=== PATIENT | male | born 1965 | race Caucasian/White ===

== ENCOUNTER 2022-09-01 10:14 | Inpatient (IN) | payer MEDICAID ==
[2022-09-01] MEDS ORDERED: SODIUM CHLORIDE 0.9% 1,000 ML IV STA ×2 (11:02→14:34)
[2022-09-01] MEDS ORDERED: ONDANSETRON 4 MG/2 ML VIAL IVP STA (11:02)
[2022-09-01] MEDS ORDERED: MORPHINE 2 MG/ML CARPUJECT IVP STA (11:02)
[2022-09-01 11:10] LABS: BASOPHILS % (AUTO) 0.2 %; EOSINOPHILS % (AUTO) 0.1 %; HCT - HEMATOCRIT 51.6 % (42.0-52.0); MEAN CORPUSCULAR HEMOGLOBIN 29.8 pg (27.0-31.0); MEAN CORPUSCULAR HGB CONC 32.9 g/dL (32.0-36.0); MEAN CORPUSCULAR VOLUME 90.5 fL (80.0-94.0); MEAN PLATELET VOLUME 8.8 fL (7.4-11.4); MONOCYTES # (AUTO) 0.8 10^3/uL (0.0-1.0); MONOCYTES % (AUTO) 3.9 %; NEUTROPHILS # (AUTO) 17.5 10^3/uL (1.5-6.6); NEUTROPHILS % (AUTO) 90.5 %; PLT - PLATELET COUNT 292 10^3/uL (130-450); RED CELL DISTRIBUTION WIDTH 13.2 % (12.0-15.0); WHITE BLOOD COUNT 19.3 x10^3/uL (4.8-10.8)
--- NOTE | 2022-09-01 11:17 | ED Physician Documentation ---
PD HPI ABD PAIN - Stated complaint Stated Complaint: ABD PX/TIGHTNESS - Chief complaint Chief Complaint: Abd Pain - History obtained from History obtained from: Patient - Additional information Additional information: Patient is a 56-year-old with no significant past medical history presenting for evaluation of left lower quadrant pain has been present since yesterday. He reports the pain is sharp. Nothing makes it better or worse. He has associated nausea. He had a normal bowel movement yesterday. He denies a history of prior abdominal surgeries. He does not take a blood thinner. He denies a history of similar pains in the past. He presented to the walk-in clinic who directed him to the emergency department. Review of Systems Constitutional: denies: Fever Cardiac: denies: Chest pain / pressure Respiratory: denies: Dyspnea GI: reports: Abdominal Pain, Nausea. denies: Diarrhea : denies: Dysuria Musculoskeletal: denies: Back pain Neurologic: denies: Headache PD PAST MEDICAL HISTORY - Past Surgical History Past Surgical History: No - Present Medications Home Medications: Ambulatory Orders Medication Instructions Recorded Confirmed No Known Home Medications 09/01/22 09/01/22 - Allergies Allergies/Adverse Reactions: Allergies Allergy/AdvReac Type Severity Reaction Status Date / Time No Known Drug Allergies Allergy Verified 09/01/22 10:34 - Social History Does the pt smoke?: No Smoking Status: Never smoker Does the pt drink ETOH?: No Does the pt have substance abuse?: No - Immunizations Immunizations are current?: Yes PD ED PE NORMAL - General General: Alert and oriented X 3, No acute distress, Well developed/nourished - HEENT HEENT: Atraumatic - Neck Neck: Supple, no meningeal sign - Cardiac Cardiac: RRR, No murmur, Strong equal pulses - Respiratory Respiratory: No respiratory distress, Clear bilaterally - Abdomen Abdomen: Normal bowel sounds, Soft, Non distended, Other (Left lower quadrant tenderness to palpation, no rebound, no guarding) - Derm Derm: Warm and dry - Extremities Extremities: No edema - Neuro Neuro: Normal speech Results - Vitals Vitals: Vital Signs - 24 hr 09/01/22 09/01/22 09/01/22 10:29 14:11 16:27 Temperature 36.7 C 37.0 C Heart Rate 103 H 114 H 104 H Respiratory 18 24 16 Rate Blood Pressure 115/74 129/89 H 118/85 H O2 Saturation 96 96 97 Oxygen O2 Source Room air - Labs Labs: Laboratory Tests 09/01/22 09/01/22 11:05 11:05 WBC 19.3 H RBC 5.70 Hgb 17.0 Hct 51.6 MCV 90.5 MCH 29.8 MCHC 32.9 RDW 13.2 Plt Count 292 MPV 8.8 Neut # (Auto) 17.5 H Lymph # (Auto) 1.0 L [place] # (Auto) 0.8 Eos # (Auto) 0.0 Baso # (Auto) 0.0 Absolute Nucleated RBC 0.00 Nucleated RBC % 0.0 Sodium 134 L Potassium 4.1 Chloride 93 L Carbon Dioxide 30 Anion Gap 11.0 BUN 17 Creatinine 1.3 H Estimated GFR (MDRD) 57 L Glucose 121 H Calcium 10.1 Total Bilirubin 1.3 H AST 22 ALT 26 Alkaline Phosphatase 79 Total Protein 8.9 H Albumin 4.5 Globulin 4.4 H Albumin/Globulin Ratio 1.0 Lipase 33 PD Medical Decision Making - ED course ED course: Patient presenting for evaluation of left lower quadrant pain. His labs are si gnificant for leukocytosis. He is slightly tachycardic. His CT demonstrates diverticulitis with a reactive ileus versus earlyShow small bowel obstruction.He continues to have nausea. I do not feel that he is appropriate for outpatient management and consulted with Dr. Gonsales. She agrees that patient should be kept n.p.o., had IV fluids and antibiotics and agrees with the choices of Cipro and Flagyl.She agrees with the plan for an NG tube if patient continues to have significant nausea. She will consult on the patient. As there are no beds available in the hospital patient will remain boarding in the emergency department. General surgery will continue to follow along with the patient.The hope is that his partial small bowel obstruction will resolve quickly with antibiotics and fluids and bowel rest and that he will start to have some improvement tomorrow. Once he is tolerating a liquid diet he will be able to be discharged home. Departure - Departure Disposition: ED Place in Observation Clinical Impression: Diverticulitis, Partial small bowel obstruction Condition: Stable
[2022-09-01] MEDS ORDERED: iohexoL-300 100 ML VIAL ONE (11:23)
[2022-09-01 11:26] LABS: ALBUMIN 4.5 g/dL (3.2-5.5); BILIRUBIN,TOTAL 1.3 mg/dL (0.2-1.0); CALCIUM 10.1 mg/dL (8.5-10.3); CREATININE 1.3 mg/dL (0.6-1.2); POTASSIUM 4.1 mmol/L (3.5-5.0); TOTAL PROTEIN 8.9 g/dL (6.7-8.2)
[2022-09-01] MEDS ORDERED: iohexoL-300 100 ML VIAL IVP ONE (13:27)
--- NOTE | 2022-09-01 13:31 | CT Report ---
PROCEDURE: ABDOMEN/PELVIS W INDICATIONS: LLQ pain CONTRAST: 100ml Omnipaque 300 TECHNIQUE: After the administration of IV contrast, 5 mm thick sections acquired from the diaphragms to the symp hysis. 5 mm thick coronal and sagittal reformats were acquired. For radiation dose reduction, the f ollowing was used: automated exposure control, adjustment of mA and/or kV according to patient size. COMPARISON: None. FINDINGS: Image quality: Excellent. ABDOMEN: Lung bases: Gravitational changes present at both lung bases. Mildly enlarged heart. Small hiatal her lamar.. Solid organs: Subcentimeter liver hypodensity near the dome in segment 8, too small to characterize. Liver appears otherwise normal. Normal gallbladder. No biliary dilatation. Normal pancreas, spleen, a drenal glands, and kidneys. No nephrolithiasis or hydronephrosis. Peritoneum and bowel: The stomach is distended with liquid and contains an air-fluid level. Duodenum and proximal jejunum are decompressed. There are several distended, fluid-filled mid small bowel loo ps, some in the left abdomen with mild wall thickening. Distal ileum is decompressed. There is liquid stool in the proximal colon. There are mild inflammatory changes in the left lower quadrant along wi th mild antral coronal fascial thickening. No extraluminal gas or free fluid. Several diverticula are present in this area. Nodes and vessels: No retroperitoneal or mesenteric adenopathy by size criteria. Aorta and inferior vena cava are normal in size. Miscellaneous: No ventral hernias. PELVIS: Genitourinary: Bladder wall thickness is normal. Normal size prostate gland. Miscellaneous: No inguinal hernias or adenopathy. Bones: No suspicious bony lesions. There are severe asymmetric degenerative changes in the right fem oral acetabular joint and minor degeneration of the left. No vertebral body compression fractures. IMPRESSION: 1. There is mild pericolonic inflammation in the left lower quadrant indicative of diverticulitis. 2. Several distended loops of small bowel and a distended, fluid-filled stomach suggesting severe jhonathan ctive ileus or early/partial small bowel obstruction. NG tube may be beneficial. 3. No visible free air. Reviewed by: Jessie Lane MD on 09/01/2022 1:30 PM PST Approved by: Jessie Lane MD on 09/01/2022 1:30 PM PST Station ID: [id number]
[2022-09-01] MEDS ORDERED: ONDANSETRON 4 MG/2 ML VIAL IVP PRN (14:54)
[2022-09-01] MEDS: MORPHINE 2 MG/ML CARPUJECT IVP PRN ×2 (15:30→21:25)
[2022-09-01] MEDS: CIPROFLOXACIN 400 MG/200 ML 400 MG/200 ML BAG IV SCH (15:30)
[2022-09-01] MEDS ORDERED: PHENOL THROAT SPRAY 177 ML MM STA (15:47)
--- NOTE | 2022-09-01 15:57 | CONSULTATION NOTE ---
Referring Provider Name of Referring Provider:: ED (Rocco King) Consult Date: 09/01/22 Chief Complaint - Chief Complaint Chief Complaint: abdominal pain, n/v History of Present Illness - Admitted From Admitted From:: ED - History Obtained From Records Reviewed: yes History obtained from: patient, ED provider, chart - History of Present Illness HPI Comment/Other: Patient states he had onset of abdominal pain Monday evening which has progressively worsened and is most notable in the left lower quadrant. The pain is sharp and non radiating in nature. The patient states he began having nausea and vomiting last night and it's worsened throughout the day today and he's not keeping anything down, prompting him to come into the ED. He had a normal BM yesterday and has not had anything to eat since yesterday. He denies any chronic medical problems, medications, or prior surgeries. He has never had a colonoscopy. His labs and imaging are consistent with acute diverticulitis with an ileus, which explains his symptoms, for this, general surgery is being consulted. History - Past Medical History Cardiovascular: reports: None Respiratory: reports: None Neuro: reports: None Endocrine/Autoimmune: reports: None GI: reports: None BATCHMAKER: reports: None : reports: None HEENT: reports: None Psych: reports: None Musculoskeletal: reports: None Derm: reports: None MRSA Hx?: Yes - Past Surgical History Other past surgical history: No previous surgery Meds/Allgy - Home Medications Home Medications: Ambulatory Orders Medication Instructions Recorded Confirmed No Known Home Medications 09/01/22 09/01/22 - Allergies Allergies/Adverse Reactions: Allergies Allergy/AdvReac Type Severity Reaction Status Date / Time No Known Drug Allergies Allergy Verified 09/01/22 10:34 Review of Systems - Constitutional Constitutional: reports: Other (Complete 10 point ROS is negative except for HPI and PMH.) Exam - Vital Signs Reviewed Vital Signs: Yes Vital Signs: Vital Signs x48h Temp Pulse Resp BP Pulse Ox 09/01/22 14:11 37.0 C 114 H 24 129/89 H 96 09/01/22 10:29 36.7 C 103 H 18 115/74 96 - Physical Exam General Appearance: positive: No acute distress, Alert Eyes Bilateral: positive: Normal inspection, PERRL, EOMI ENT: positive: ENT inspection nml, Dry mucous membranes Neck: positive: Nml inspection, Trachea midline Respiratory: positive: Chest non-tender, No respiratory distress Cardiovascular: positive: Tachycardia (mild, improving). negative: Systolic murmur Peripheral Pulses: positive: 2+ Abdomen: positive: Tenderness (LLQ). negative: No distention (moderate distension), Guarding, Rebound Back: positive: Nml inspection Skin: positive: Color nml, No rash Extremities: positive: Non-tender, Full ROM Neurologic/Psychiatric: positive: Oriented x3 Conclusion and Plan - Lab Results Laboratory Results 09/01/22 11:05: Sodium 134 L, Potassium 4.1, Chloride 93 L, Carbon Dioxide 30, Anion Gap 11.0, BUN 17, Creatinine 1.3 H, Estimated GFR (MDRD) 57 L, Glucose 121 H, Calcium 10.1, Total Bilirubin 1.3 H, AST 22, ALT 26, Alkaline Phosphatase 79, Total Protein 8.9 H, Albumin 4.5, Globulin 4.4 H, Albumin/Globulin Ratio 1.0, Lipase 33 09/01/22 11:05: WBC 19.3 H, RBC 5.70, Hgb 17.0, Hct 51.6, MCV 90.5, MCH 29.8, MCHC 32.9, RDW 13.2, Plt Count 292, MPV 8.8, Neut # (Auto) 17.5 H, Lymph # (Auto) 1.0 L, [place] # (Auto) 0.8, Eos # (Auto) 0.0, Baso # (Auto) 0.0, Absolute Nucleated RBC 0.00, Nucleated RBC % 0.0 - Diagnostic Imaging Results Diagnostic Imaging Results: positive: Final report reviewed Diagnostic Imaging Results Comments: I personally reviewed the CT images and report from the patient's study today. He has sigmoid diverticulitis without signs of perforation and with an associated ileus. No free air. No free fluid. - Diagnosis Diagnosis: Acute diverticulitis with ileus - Plan Plan: 56 y/o M with Acute diverticulitis with ileus - NPO - recommend NG if patient has persistent n/v despite being NPO. - IV antibiotics until ileus resolves and patient can tolerate PO diet and meds - prn pain, nausea medication, IVF resuscitation - Patient is due for colonoscopy by age alone, recommend patient follow up with surgery to schedule this procedure (date of procedure will need to be at least 6 weeks after symptom resolution). Thank you for consulting general surgery in the care of this patient. He will be boarding in the ED as no beds are available in the hospital at this time. I will have my partner, Dr. 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 Allison Gonsales MD
[2022-09-01] MEDS: metroNIDAZOLE 500 MG/100 ML 500 MG/100 ML BAG IV SCH ×2 (16:24→22:32)
--- NOTE | 2022-09-01 18:57 | XRAY Report ---
PROCEDURE: Chest for Line Placement INDICATIONS: NG placement TECHNIQUE: One view of the chest was acquired. COMPARISON: None. FINDINGS: Surgical changes and devices: NG tube tip is below the left hemidiaphragm and is in the expected loc ation of stomach lumen. Lungs and pleura: No pleural effusions or pneumothorax. Lungs are clear. Mediastinum: Mediastinal contours appear normal. Heart size is normal. Bones and chest wall: No suspicious bony lesions. Overlying soft tissues appear unremarkable. IMPRESSION: NG tube tip is in the expected location of stomach lumen. No focal infiltrate, pleural effusion or pn eumothorax. Reviewed by: Ryan Santo MD on 09/01/2022 6:56 PM PST Approved by: Ryan Santo MD on 09/01/2022 6:56 PM PST Station ID: [id number]
[2022-09-02] MEDS: CIPROFLOXACIN 400 MG/200 ML 400 MG/200 ML BAG IV SCH ×2 (02:41→17:11)
[2022-09-02 05:30] LABS: BASOPHILS % (AUTO) 0.3 %; EOSINOPHILS # (AUTO) 0.1 10^3/uL (0.0-0.7); EOSINOPHILS % (AUTO) 0.3 %; HGB - HEMOGLOBIN 14.8 g/dL (14.0-18.0); LYMPHOCYTES % (AUTO) 6.7 %; MEAN CORPUSCULAR HGB CONC 31.5 g/dL (32.0-36.0); MEAN CORPUSCULAR VOLUME 95.1 fL (80.0-94.0); MEAN PLATELET VOLUME 8.7 fL (7.4-11.4); MONOCYTES # (AUTO) 0.8 10^3/uL (0.0-1.0); MONOCYTES % (AUTO) 5.1 %; NEUTROPHILS # (AUTO) 13.6 10^3/uL (1.5-6.6); NEUTROPHILS % (AUTO) 87.2 %; PLT - PLATELET COUNT 233 10^3/uL (130-450); RED BLOOD COUNT 4.94 10^6/uL (4.70-6.10); RED CELL DISTRIBUTION WIDTH 13.3 % (12.0-15.0); WHITE BLOOD COUNT 15.5 x10^3/uL (4.8-10.8)
[2022-09-02 05:40] LABS: CALCIUM 8.6 mg/dL (8.5-10.3)
[2022-09-02] MEDS: MORPHINE 2 MG/ML CARPUJECT IVP PRN ×2 (06:23→09:29)
[2022-09-02] MEDS: metroNIDAZOLE 500 MG/100 ML 500 MG/100 ML BAG IV SCH ×3 (06:30→22:27)
[2022-09-02] MEDS ORDERED: PANTOPRAZOLE 40 MG TABLET PO SCH (07:00)
--- NOTE | 2022-09-02 11:14 | PROVIDER PROGRESS NOTE ---
Subjective - Prog Note Date Prog Note Date: 09/02/22 - Subjective Pt reports feeling: Improved (less abdominal pain and distension. positive flatus since admit) Objective - Vital Signs/Intake & Output Reviewed Vital Signs: Yes Vital Signs: Vital Signs x48h Pulse Resp BP Pulse Ox O2 Flow Rate 09/02/22 10:00 90 18 120/77 98 2 09/02/22 08:00 95 16 116/73 99 2 09/02/22 06:10 103 H 18 130/90 H 92 09/02/22 04:06 92 18 118/82 H 98 Intake & Output: Intake & Output 08/30/22 08/31/22 09/01/22 09/02/22 23:59 23:59 23:59 23:59 Intake Total 1400 1300 Balance 1400 1300 - Objective General Appearance: positive: No acute distress, Alert Eyes Bilateral: positive: PERRL, EOMI, No scleral icterus Respiratory: positive: No respiratory distress Abdomen: positive: No distention, Other (minimal left lower quadrant tenderness ngt dark) Neurologic/Psychiatric: positive: Oriented x3 - Lab Results Fish Bones: 09/02/22 05:25 09/02/22 05:25 Other Labs: Lab Results x24hrs 09/02/22 09/02/22 09/01/22 Range/Units 05:25 05:25 16:28 WBC 15.5 H (4.8-10.8) x10^3/uL RBC 4.94 (4.70-6.10) 10^6/uL Hgb 14.8 (14.0-18.0) g/dL Hct 47.0 (42.0-52.0) % MCV 95.1 H (80.0-94.0) fL MCH 30.0 (27.0-31.0) pg MCHC 31.5 L (32.0-36.0) g/dL RDW 13.3 (12.0-15.0) % Plt Count 233 (130-450) 10^3/uL MPV 8.7 (7.4-11.4) fL Neut # (Auto) 13.6 H (1.5-6.6) 10^3/uL Lymph # (Auto) 1.0 L (1.5-3.5) 10^3/uL [place] # (Auto) 0.8 (0.0-1.0) 10^3/uL Eos # (Auto) 0.1 (0.0-0.7) 10^3/uL Baso # (Auto) 0.0 (0.0-0.1) 10^3/uL Absolute Nucleated RBC 0.00 x10^3/uL Nucleated RBC % 0.0 /100WBC Sodium 133 L (135-145) mmol/L Potassium 4.0 (3.5-5.0) mmol/L Chloride 98 L (101-111) mmol/L Carbon Dioxide 24 (21-32) mmol/L Anion Gap 11.0 (6-13) BUN 15 (6-20) mg/dL Creatinine 1.0 (0.6-1.2) mg/dL Estimated GFR (MDRD) 77 L (>89) Glucose 98 (70-100) mg/dL Calcium 8.6 (8.5-10.3) mg/dL Total Bilirubin (0.2-1.0) mg/dL AST (10-42) IU/L ALT (10-60) IU/L Alkaline Phosphatase (42-121) IU/L Total Protein (6.7-8.2) g/dL Albumin (3.2-5.5) g/dL Globulin (2.1-4.2) g/dL Albumin/Globulin Ratio (1.0-2.2) Lipase (22-51) U/L SARS-CoV-2 (PCR) NOT DETECTED 09/01/22 09/01/22 Range/Units 11:05 11:05 WBC 19.3 H (4.8-10.8) x10^3/uL RBC 5.70 (4.70-6.10) 10^6/uL Hgb 17.0 (14.0-18.0) g/dL Hct 51.6 (42.0-52.0) % MCV 90.5 (80.0-94.0) fL MCH 29.8 (27.0-31.0) pg MCHC 32.9 (32.0-36.0) g/dL RDW 13.2 (12.0-15.0) % Plt Count 292 (130-450) 10^3/uL MPV 8.8 (7.4-11.4) fL Neut # (Auto) 17.5 H (1.5-6.6) 10^3/uL Lymph # (Auto) 1.0 L (1.5-3.5) 10^3/uL [place] # (Auto) 0.8 (0.0-1.0) 10^3/uL Eos # (Auto) 0.0 (0.0-0.7) 10^3/uL Baso # (Auto) 0.0 (0.0-0.1) 10^3/uL Absolute Nucleated RBC 0.00 x10^3/uL Nucleated RBC % 0.0 /100WBC Sodium 134 L (135-145) mmol/L Potassium 4.1 (3.5-5.0) mmol/L Chloride 93 L (101-111) mmol/L Carbon Dioxide 30 (21-32) mmol/L Anion Gap 11.0 (6-13) BUN 17 (6-20) mg/dL Creatinine 1.3 H (0.6-1.2) mg/dL Estimated GFR (MDRD) 57 L (>89) Glucose 121 H (70-100) mg/dL Calcium 10.1 (8.5-10.3) mg/dL Total Bilirubin 1.3 H (0.2-1.0) mg/dL AST 22 (10-42) IU/L ALT 26 (10-60) IU/L Alkaline Phosphatase 79 (42-121) IU/L Total Protein 8.9 H (6.7-8.2) g/dL Albumin 4.5 (3.2-5.5) g/dL Globulin 4.4 H (2.1-4.2) g/dL Albumin/Globulin Ratio 1.0 (1.0-2.2) Lipase 33 (22-51) U/L SARS-CoV-2 (PCR) Assessment/Plan - Problem List (1) Diverticulitis Impression: plan continue present care admit to surgery when bed available possibly ngt out tomorrow in patient admit
[2022-09-02] MEDS ORDERED: SODIUM CHLORIDE FLUSH 0.9% 10 ML SYRINGE IVP PRN (11:28)
[2022-09-02] MEDS ORDERED: PROCHLORPERAZINE 10 MG/2 ML VIAL IVP PRN (11:28)
[2022-09-02] MEDS: SODIUM CHLORIDE 0.9% 1,000 ML IV SCH ×2 (12:15→22:27)
--- NOTE | 2022-09-02 15:23 | PHARMACY PROGRESS NOTE ---
- Best Possible Medication History Admit Date and Time: 09/02/22 1128 Processed by: Nursing Medication History completed: Yes As the person ultimately responsible for medication therapy, providers are able to order a medication from an existing home medication list in [facility] via the "Reconcile Routine" prior to Confirmation of that medication by office support assistant. Such practice is discouraged except when the physician, in their clinical judgment, deems that a medical need exists for a medication without regard to previous use.
[2022-09-02] MEDS: HYDROmorphone 0.5 MG/0.5 ML SYRINGE IVP PRN ×2 (17:10→19:14)
[2022-09-02] MEDS: SODIUM CHLORIDE FLUSH 0.9% 10 ML SYRINGE IVP SCH (18:27)
[2022-09-02] MEDS ORDERED: SODIUM CHLORIDE 0.9% 1,000 ML IV ONE (21:13)
[2022-09-02] MEDS: FAMOTIDINE 20 MG TABLET PO SCH (21:24)
[2022-09-02] MEDS: HEPARIN 5,000 UNIT/ML VIAL SUBQ SCH (21:25)
--- NOTE | 2022-09-02 22:57 | XRAY Report ---
PROCEDURE: Chest for Line Placement INDICATIONS: NG tube placement TECHNIQUE: One view of the chest was acquired. COMPARISON: Chest plain film one day ago reviewed.. FINDINGS: Surgical changes and devices: And esophagogastric tube passes through the EG junction and extends in to the gastric body directed leftward.. Lungs and pleura: No pleural effusions or pneumothorax. Lungs are again difficult to accurately ass ess due to prominent reduced inspiratory volume. Mild or early pneumonia could be superimposed at eac h lung base.. Mediastinum: Mediastinal contours appear normal. Heart size is normal. Bones and chest wall: No suspicious bony lesions. Overlying soft tissues appear unremarkable. IMPRESSION: No change in appearance of the lung parenchyma from one day ago-prominent reduced inspiratory volume. Esophagogastric tube is present within the gastric lumen, in the gastric body, directed leftwards. Reviewed by: Justino Gurrola MD on 09/02/2022 10:56 PM [facility] Approved by: Justino Gurrola MD on 09/02/2022 10:56 PM [facility] Station ID: [id number]
[2022-09-03] MEDS: SODIUM CHLORIDE FLUSH 0.9% 10 ML SYRINGE IVP SCH ×3 (01:43→16:09)
[2022-09-03] MEDS: CIPROFLOXACIN 400 MG/200 ML 400 MG/200 ML BAG IV SCH ×2 (03:49→16:03)
[2022-09-03] MEDS: HYDROmorphone 0.5 MG/0.5 ML SYRINGE IVP PRN (04:22)
[2022-09-03] MEDS: metroNIDAZOLE 500 MG/100 ML 500 MG/100 ML BAG IV SCH ×3 (06:20→22:39)
[2022-09-03] MEDS: oxyCODONE 5 MG TABLET PO PRN ×2 (08:12→22:39)
[2022-09-03] MEDS: ACETAMINOPHEN 325 MG TABLET PO PRN ×2 (08:12→21:08)
[2022-09-03] MEDS: FAMOTIDINE 20 MG TABLET PO SCH ×2 (08:13→21:03)
[2022-09-03] MEDS: HEPARIN 5,000 UNIT/ML VIAL SUBQ SCH ×2 (09:51→21:03)
[2022-09-03] MEDS: SODIUM CHLORIDE 0.9% 1,000 ML IV SCH ×3 (09:53→18:11)
--- NOTE | 2022-09-03 10:28 | PROVIDER PROGRESS NOTE ---
Subjective - Prog Note Date Prog Note Date: 09/03/22 - Subjective Pt reports feeling: No change (feeling ok. minimal pain. no longer distended) Objective - Vital Signs/Intake & Output Reviewed Vital Signs: Yes Vital Signs: Vital Signs x48h Temp Pulse Resp BP Pulse Ox O2 Flow Rate 09/03/22 07:39 36.7 C 94 18 121/71 98 2 09/03/22 04:32 83 16 95 Intake & Output: Intake & Output 08/31/22 09/01/22 09/02/22 09/03/22 23:59 23:59 23:59 23:59 Intake Total 1400 2880.000 2420 Output Total 200 1025 Balance 1400 2680.000 1395 - Objective General Appearance: positive: No acute distress, Alert Eyes Bilateral: positive: PERRL, EOMI, No scleral icterus Neck: positive: No JVD Respiratory: positive: No respiratory distress Abdomen: positive: No distention, Other (minimal llq tenderness) Neurologic/Psychiatric: positive: Oriented x3 - Lab Results Fish Bones: 09/02/22 05:25 09/02/22 05:25 Assessment/Plan - Problem List (1) Diverticulitis Impression: ileus still present with dark ngt output. feels improved after more fluids last pm afebrile and wbc down continue present care ngt out when ileus improved
[2022-09-03 15:03] LABS: HCT - HEMATOCRIT 41.5 % (42.0-52.0); HGB - HEMOGLOBIN 13.5 g/dL (14.0-18.0); MEAN CORPUSCULAR HEMOGLOBIN 30.2 pg (27.0-31.0); MEAN CORPUSCULAR HGB CONC 32.5 g/dL (32.0-36.0); MEAN CORPUSCULAR VOLUME 92.8 fL (80.0-94.0); MEAN PLATELET VOLUME 8.8 fL (7.4-11.4); RED BLOOD COUNT 4.47 10^6/uL (4.70-6.10); RED CELL DISTRIBUTION WIDTH 13.1 % (12.0-15.0); WHITE BLOOD COUNT 10.9 x10^3/uL (4.8-10.8)
[2022-09-03 15:13] LABS: CALCIUM 8.2 mg/dL (8.5-10.3)
[2022-09-04] MEDS: SODIUM CHLORIDE 0.9% 1,000 ML IV SCH ×2 (03:43→13:24)
[2022-09-04] MEDS: CIPROFLOXACIN 400 MG/200 ML 400 MG/200 ML BAG IV SCH ×2 (03:43→14:38)
[2022-09-04] MEDS: SODIUM CHLORIDE FLUSH 0.9% 10 ML SYRINGE IVP SCH ×2 (03:44→04:49)
[2022-09-04] MEDS: HYDROmorphone 0.5 MG/0.5 ML SYRINGE IVP PRN (04:49)
[2022-09-04] MEDS: metroNIDAZOLE 500 MG/100 ML 500 MG/100 ML BAG IV SCH ×2 (06:04→13:30)
[2022-09-04 07:45] VITALS: BP 108/66
[2022-09-04] MEDS: HEPARIN 5,000 UNIT/ML VIAL SUBQ SCH (08:33)
[2022-09-04] MEDS: FAMOTIDINE 20 MG TABLET PO SCH (08:34)
--- NOTE | 2022-09-04 09:49 | PROVIDER PROGRESS NOTE ---
Subjective - Subjective Pt reports feeling: Improved (passing gas and having bms. minimal pain) Objective - Vital Signs/Intake & Output Vital Signs: Vital Signs x48h Temp Pulse Resp BP Pulse Ox 09/04/22 07:43 36.5 C 83 20 108/66 94 Intake & Output: Intake & Output 09/01/22 09/02/22 09/03/22 09/04/22 23:59 23:59 23:59 23:59 Intake Total 1400 2880.000 4459.167 725.833 Output Total 200 1225 375 Balance 1400 2680.000 3234.167 350.833 - Objective General Appearance: positive: No acute distress, Alert ENT: positive: No signs of dehydration Neck: positive: No JVD Respiratory: positive: No respiratory distress Abdomen: positive: Non-tender, No distention Neurologic/Psychiatric: positive: Oriented x3 - Lab Results Fish Bones: 09/03/22 14:50 09/03/22 14:50 Other Labs: Lab Results x24hrs 09/03/22 09/03/22 Range/Units 14:50 14:50 WBC 10.9 H (4.8-10.8) x10^3/uL RBC 4.47 L (4.70-6.10) 10^6/uL Hgb 13.5 L (14.0-18.0) g/dL Hct 41.5 L (42.0-52.0) % MCV 92.8 (80.0-94.0) fL MCH 30.2 (27.0-31.0) pg MCHC 32.5 (32.0-36.0) g/dL RDW 13.1 (12.0-15.0) % Plt Count 237 (130-450) 10^3/uL MPV 8.8 (7.4-11.4) fL Sodium 136 (135-145) mmol/L Potassium 4.0 (3.5-5.0) mmol/L Chloride 103 (101-111) mmol/L Carbon Dioxide 26 (21-32) mmol/L Anion Gap 7.0 (6-13) BUN 17 (6-20) mg/dL Creatinine 1.0 (0.6-1.2) mg/dL Estimated GFR (MDRD) 77 L (>89) Glucose 96 (70-100) mg/dL Calcium 8.2 L (8.5-10.3) mg/dL Assessment/Plan - Problem List (1) Diverticulitis Impression: improving ileus improved d/c ngt sip clears home when tolerating clears well, no nausea, minimal discomfort
[2022-09-04] MEDS ORDERED: LORazepam 1 MG TABLET PO PRN (11:50)
--- NOTE | 2022-09-04 11:59 | Discharge Plan ---
Discharge Plan Problem Reviewed?: Yes Disposition: Home, Self Care Condition: Good Prescriptions: Ciprofloxacin [Cipro] 500 mg PO Q12H #28 tablet metroNIDAZOLE [Flagyl] 500 mg PO BID 7 Days #14 tablet Diet: Regular (mostly thin liquids for a couple days and then slow advance to soft foods as tolerated) Activity Restrictions: No Restrictions Shower Restrictions: No Driving Restrictions: No Weight Bearing: Full Weight Health Concerns: recent diverticulitis/ inflammation of the large intestine Plan of Treatment: home on thin liquid diet for a day or two and then slowly advance to a regular diet as tolerated Assessment: much improved since admit Additional Instructions or Follow Up instructions: call the office or go to the ED for fever over 101, continued nausea and vomiting [phone] call the office to make a follow up appointment No Smoking: If you smoke, Please STOP! Call for help. Follow-up with: Jeanmarie Abarca MD [Provider Admit Priv/Credential] -
--- NOTE | 2022-09-04 12:05 | DISCHARGE SUMMARY ---
"Discharge Summary Admit Date: 09/01/22 Discharge Date: 09/04/22 Discharging Provider: jerardo mayen md Code Status: Attempt Resuscitation Discharge Facility Name: [facility] - DIAGNOSES Admission Diagnoses: diverticulitis with ileus Discharge Diagnoses with Status of Each Condition: much improved at time of discharge. no nausea or abdominal pain - HPI History of Present Illness: ngt for 3 days and iv abxs. much improved by 09/04/2022. afebrile, no distension. minimal to no pain. d/c home on oral abxs and clear liquid diet. to slowly advance diet at home - CONSULTS | PROCEDURES Procedures: ngt, ivf, iv abxs - HOSPITAL COURSE Hospital Course: ileus resolved by 09/04/2022 and able to tolerate clears - ALLERGIES Allergies/Adverse Reactions: Allergies Allergy/AdvReac Type Severity Reaction Status Date / Time No Known Drug Allergies Allergy Verified 09/01/22 10:34 - MEDICATIONS Home Medications: Ambulatory Orders Medication Instructions Recorded Confirmed Ciprofloxacin [Cipro] 500 mg PO Q12H #28 tablet 09/04/22 metroNIDAZOLE [Flagyl] 500 mg PO BID 7 Days #14 tablet 09/04/22 - PHYSICAL EXAM AT DISCHARGE General Appearance: positive: No acute distress, Alert Eyes Bilateral: positive: PERRL, EOMI, No scleral icterus ENT: positive: No signs of dehydration Neck: positive: No JVD, Trachea midline Respiratory: positive: No respiratory distress Abdomen: positive: Non-tender, No distention Neurologic/Psychiatric: positive: Oriented x3 - LABS Result Diagrams: 09/03/22 14:50 09/03/22 14:50 - FOLLOW UP Follow Up: surgery. call to make an appointment [phone]"
== END 2022-09-04 16:06 | disposition home or self-care (01) | DRG 392 ==
LOC: ED 10:14 → MS2 09-02 11:28
PROVIDERS: ADMIT Surgery; ATTEND Surgery
DX: K57.32 Diverticulitis of large intestine without perforation or abscess without bleeding (principal); K56.7 Ileus, unspecified; Z20.822 Contact with and (suspected) exposure to COVID-19
CPT/HCPCS: 36415; 74177; 80048; 80053; 83690; 85025; 85027; 87635; A9270; J1170; J8499; Q9967

== ENCOUNTER 2023-08-05 08:06 | Emergency (ER) | payer MEDICAID ==
[2023-08-05 08:25] VITALS: BP 130/88; O2SAT 99
--- NOTE | 2023-08-05 08:32 | ED Physician Documentation ---
PD HPI HEENT - Stated complaint Stated Complaint: LFT SIDE OF FACE SWOLLEN - Chief complaint Chief Complaint: General - History obtained from History obtained from: Patient - History of Present Illness Timing - onset: How many days ago (3) Timing - duration: Days (3) Timing - details: Gradual onset, Still present Location: Tooth Improves: Medication Worsens: Other (hot cold pressure) Associated symptoms: Facial swelling. No: Fever, Congestion, Rhinorrhea, Trismus, Unable to swallow, Swollen nodes, Headache, Cough Similar symptoms before: Has not had sx before Recently seen: Not recently seen - Additional information Additional information: 57-year-old Freddie Cruz has multiple carious teeth and he has a broken left upper molar. This has begun to bother him about 3 days ago felt like he got a piece of food stuck in under something and then he began to get some swelling to his face. He was unable to sleep last night and presents to the emergency department today with swelling and pain to the left side of his face. He indicates that he has not had this happen to him previously. He does not have a dentist. Review of Systems Constitutional: denies: Fever Eyes: denies: Decreased vision Ears: denies: Ear pain Nose: denies: Rhinorrhea / runny nose, Congestion Throat: reports: Dental pain / toothache. 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 : None HEENT: None Psych: None Musculoskeletal: None Derm: None - Past Surgical History Past Surgical History: No - Present Medications Home Medications: Ambulatory Orders Medication Instructions Recorded Confirmed Ciprofloxacin [Cipro] 500 mg PO Q12H #28 tablet 09/04/22 metroNIDAZOLE [Flagyl] 500 mg PO BID 7 Days #14 tablet 09/04/22 Amoxicillin 875 mg PO BID #20 tablet 08/05/23 HYDROcod/ACETAM 5/325 [Lovilia 5/325] 1 - 2 tablet PO Q6H PRN #14 tablet 08/05/23 - Allergies Allergies/Adverse Reactions: Allergies Allergy/AdvReac Type Severity Reaction Status Date / Time No Known Drug Allergies Allergy Verified 09/01/22 10:34 - Social History Does the pt smoke?: Yes Smoking Status: Current every day smoker Does the pt drink ETOH?: Yes Does the pt have substance abuse?: No - Immunizations Immunizations are current?: Yes PD ED PE NORMAL - Vitals Vital signs reviewed: Yes (Hypertensive mild) - General General: Alert and oriented X 3, No acute distress, Well developed/nourished, Other (Obvious left facial swelling without erythema) - HEENT HEENT: Atraumatic, PERRL, EOMI, Other (There are multiple carious teeth and broken teeth in the left upper jaw and these are tender to palpation there is no fullness in the gingivobuccal recess. 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 We will place patient on a course of amoxicillin and provide some temporary pain relief. He is indicated he will follow-up with the dentist at Nov. Departure - Departure Disposition: 01 Home, Self Care Clinical Impression: Dental infection Condition: Stable Instructions: ED Abscess Tooth Follow-Up: Phillip Mcmillan [facility] [Provider Group] Prescriptions: Amoxicillin 875 mg PO BID #20 tablet HYDROcod/ACETAM 5/325 [Lovilia 5/325] 1 - 2 tablet PO Q6H PRN #14 tablet PRN Reason: Pain Comments: Freddie, today looks like you have a dental infection and I have E scribed amoxicillin and pain medication to the [facility] in [place]. The expectation with treatment is improvement in your swelling and pain and a follow-up with a dentist is indicated.
== END 2023-08-05 08:45 | disposition home or self-care (01) ==
LOC: ED 08:06
DX: K04.7 Periapical abscess without sinus (principal); F17.200 Nicotine dependence, unspecified, uncomplicated
CPT/HCPCS: 99282; 99283

== ENCOUNTER 2024-06-04 11:10 | Emergency (ER) | payer MEDICAID ==
[2024-06-04 11:28] VITALS: BP 141/77; O2SAT 97
--- NOTE | 2024-06-04 11:59 | ED Physician Documentation ---
PD HPI BACK PAIN - Stated complaint Stated Complaint: LOWER BACK PX,NAUSEA - Chief complaint Chief Complaint: Back Pain - History obtained from History obtained from: Patient - Additional information Additional information: He has had on and off back pain in the low back for about a year with occasional radiation to the right greater than left leg. No weakness, numbness, tingling, saddle anesthesia, fevers. There was no injury. He has not seen anyone about it. He does get some relief with Tylenol and ibuprofen. 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 : None HEENT: None Psych: Depression Musculoskeletal: Chronic back pain Derm: None - Past Surgical History Past Surgical History: No - Present Medications Home Medications: Ambulatory Orders Medication Instructions Recorded Confirmed Cyclobenzaprine [Flexeril] 10 mg PO TID PRN #20 tablet 06/04/24 - Allergies Allergies/Adverse Reactions: Allergies Allergy/AdvReac Type Severity Reaction Status Date / Time No Known Drug Allergies Allergy Verified 06/04/24 11:23 - Social History Does the pt smoke?: No Smoking Status: Former smoker Does the pt drink ETOH?: Yes ETOH Use: Beer Does the pt have substance abuse?: No - Immunizations Immunizations are current?: Yes - POLST Patient has POLST: No PD ED PE NORMAL - Vitals Vital signs reviewed: Yes - General General: Alert and oriented X 3, No acute distress - Abdomen Abdomen: Normal bowel sounds, Soft, Non tender - Back Back: No spinal TTP - Extremities Extremities: Other (The patient has equal and normal Achilles and patellar reflexes bilaterally. Normal sensation in all areas of the legs. Patient denies saddle anesthesia. Normal strength in flexion-extension at the ankles, knees, and flexion of the hips.) - Neuro Neuro: Alert and oriented X 3 Results - Vitals Vitals: Vital Signs - 24 hr 06/04/24 11:23 Temperature 36.7 C Heart Rate 86 Respiratory 16 Rate Blood Pressure 141/77 H O2 Saturation 97 Oxygen O2 Source Room air PD Medical Decision Making - ED course ED course: This patient has seemingly uncomplicated musculoskeletal back pain. The patient has no "red flags." Specifically denies IV drug use, fevers, incontinence, saddle anesthesia. Spinal epidural abscess was considered, given that the patient has no fever, is not diabetic, has no spinal tenderness, does not use IV drugs, and has no bilateral neurologic symptoms, the diagnosis of spinal epidural abscess is considered exceedingly unlikely. Departure - Departure Disposition: 01 Home, Self Care Clinical Impression: Back pain Qualifiers: Back pain location: low back pain Chronicity: acute Back pain laterality: bilateral Sciatica presence: unspecified whether sciatica present Qualified Code(s): M54.50 - Low back pain, unspecified Condition: Good Record reviewed to determine appropriate education?: Yes Instructions: ED Neck Back Pain General Prescriptions: Cyclobenzaprine [Flexeril] 10 mg PO TID PRN #20 tablet PRN Reason: Spasms Comments: I sent your prescription electronically to [facility] in [place]. As discussed, he should follow-up with your primary care physician (see attached list) for further evaluation and treatment with consideration for referral to physical therapy. Return for new or worsening symptoms. You can continue [id number] Tylenol and/or ibuprofen in addition to the muscle relaxer for the discomfort.
== END 2024-06-04 12:33 | disposition home or self-care (01) ==
LOC: ED 11:10
DX: M54.50 Low back pain, unspecified (principal)
CPT/HCPCS: 99282; 99283